=== PATIENT | female | born 1975 | race Caucasian/White ===

== ENCOUNTER → 2018-02-24 | Outpatient (CLI) | payer MEDICAID ==
[2018-02-24 13:12] LABS: Basophils % (A) 0 %; Eosinophils # (A) 0.1 k/uL (0-0.7); Eosinophils % (A) 2 %; HCT 40.2 % (34.0-46.0); HGB 13.3 gm/dL (11.4-16.0); Lymphocytes # (A) 1.2 k/uL (1.0-4.8); Lymphocytes % (A) 36 %; MCHC 33.2 g/dL (31.0-37.0); MCV 99.4 fL (80.0-100.0); Monocytes # (A) 0.2 k/uL (0-1.0); Monocytes % (A) 6 %; Neutrophils # (A) 1.8 k/uL (1.3-7.7); Neutrophils % (A) 52 %; Platelet Count 217 k/uL (150-450); RBC 4.04 m/uL (3.80-5.40); RDW 13.4 % (11.5-15.5); WBC 3.4 k/uL (3.8-10.6)
[2018-02-24 13:17] LABS: ALT 22 U/L (9-52); AST 19 U/L (14-36); Albumin 4.3 g/dL (3.5-5.0); Alkaline Phosphatase 52 U/L (38-126); Anion Gap 13 mmol/L; Blood Urea Nitrogen 13 mg/dL (7-17); Calcium 9.2 mg/dL (8.4-10.2); Carbon Dioxide 26 mmol/L (22-30); Chloride 101 mmol/L (98-107); Cholesterol 176 mg/dL (<200); Glucose 84 mg/dL (74-99); HDL Cholesterol 90 mg/dL (40-60); LDL Cholesterol,Calculated 76 mg/dL (0-99); Potassium 4.8 mmol/L (3.5-5.1); Sodium 140 mmol/L (137-145); Total Bilirubin 0.8 mg/dL (0.2-1.3); Total Protein 6.9 g/dL (6.3-8.2); Triglycerides 52 mg/dL (<150)
== END | disposition home or self-care (01) ==
LOC: LABWHC1 12:26
PROVIDERS: ATTEND Family Medicine
DX: E03.9 Hypothyroidism, unspecified (principal)
CPT/HCPCS: 36415; 80053; 80061; 84443; 85025

== ENCOUNTER → 2019-03-06 | Outpatient (CLI) | payer MEDICAID ==
[2019-03-06 12:31] LABS: African American GFR (CKD) 90.8 (60.0-200.0); Albumin 4.2 g/dL (3.80-4.90); Anion Gap 7.2 mmol/L (4.00-12.00); BUN/Creat Ratio 13.33 Ratio (12.00-20.00); Calcium 9.3 mg/dL (8.7-10.3); Carbon Dioxide 29.8 mmol/L (21.6-31.8); Globulin 2.1 g/dL (1.6-3.3); LDL Cholesterol,Calculated 79.8 mg/dL (0.0-131.0); Potassium 4.7 mmol/L (3.5-5.5); Total Bilirubin 0.8 mg/dL (0.2-1.2); Total Protein 6.3 g/dL (6.2-8.2); VLDL Calculation 13.2 mg/dL (5.00-40.00)
[2019-03-06 12:39] LABS: T4, Free (Free Thyroxine) 1.2 ng/dL (0.80-1.80)
== END | disposition home or self-care (01) ==
LOC: LABWHC1 07:16
PROVIDERS: ATTEND Family Medicine
DX: Z00.00 Encounter for general adult medical examination without abnormal findings (principal); E03.9 Hypothyroidism, unspecified
CPT/HCPCS: 36415; 80053; 80061; 84439; 84443

== ENCOUNTER → 2019-04-06 | Outpatient (CLI) | payer MEDICAID ==
--- NOTE | 2019-04-10 09:07 | MM ---
Reason for exam: screening (asymptomatic). Last mammogram was performed 2 years and 2 months ago. History: Family history of breast cancer in paternal aunt and breast cancer in paternal cousin. Physical Findings: A clinical breast exam by your physician is recommended on an annual basis and results should be correlated with mammographic findings. MG 3D Screening Mammo W/Cad Bilateral CC and MLO view(s) were taken. Prior study comparison: January 26, 2017, mammogram. January 16, 2016, mammogram. The breast tissue is extremely dense which could obscure a lesion on mammography. No significant changes when compared with prior studies. ASSESSMENT: Benign, BI-RAD 2 RECOMMENDATION: Routine screening mammogram of both breasts in 1 year.
== END | disposition home or self-care (01) ==
LOC: RADMAMWWP 06:59
PROVIDERS: ATTEND Family Medicine
DX: Z12.31 Encounter for screening mammogram for malignant neoplasm of breast (principal)
CPT/HCPCS: 77063; 77067

== ENCOUNTER 2019-08-20 06:22 | Day surgery (SDC) | payer MEDICAID ==
[2019-08-16 10:12] VITALS: BMI 23.6
--- NOTE | 2019-08-19 23:05 | P.GSHP ---
History of Present Illness H&P Date: 08/20/19 CHIEF COMPLAINT: GERD and colon screen HISTORY OF PRESENT ILLNESS: The patient is a 44-year-old female who presents with gastroesophageal reflux disease and need for colon screen. Upper and lower endoscopy were offered for further evaluation and management. PAST MEDICAL HISTORY: Please see list. PAST SURGICAL HISTORY: Please see list. MEDICATIONS: Please see list. ALLERGIES: Please see list. SOCIAL HISTORY: No illicit drug use FAMILY HISTORY: No reports of Crohn disease or ulcerative colitis. REVIEW OF ORGAN SYSTEMS: CONSTITUTIONAL: No reports of fevers or chills. GI: Denies any blood in stools or constipation. PHYSICAL EXAM: VITAL SIGNS: Stable GENERAL: Well-developed pleasant in no acute distress. HEENT: No scleral icterus. Extraocular movements grossly intact. Moist buccal mucosa. NECK: Supple without lymphadenopathy. CHEST: Unlabored respirations. Equal bilateral excursions. CARDIOVASCULAR: Regular rate and rhythm. Distal 2+ pulses. ABDOMEN: Soft, nondistended. MUSCULOSKELETAL: No clubbing, cyanosis, or edema. ASSESSMENT: 1. Gastroesophageal reflux disease 2. Colon screen. PLAN: 1. Recommend proceeding with an upper and lower endoscopy Past Medical History Past Medical History: Thyroid Disorder Additional Past Medical History / Comment(s): frequent diarrhea, celiac dx, History of Any Multi-Drug Resistant Organisms: None Reported Past Surgical History: Tonsillectomy Additional Past Surgical History / Comment(s): prev EGD, D&C Past Anesthesia/Blood Transfusion Reactions: No Reported Reaction Past Psychological History: Anxiety Smoking Status: Former smoker Past Alcohol Use History: Occasional Additional Past Alcohol Use History / Comment(s): smoked occasionally for a few years in teens Past Drug Use History: None Reported - Past Family History Father Family Medical History: Blood Disorder, Deep Vein Thrombosis (DVT) Medications and Allergies Home Medications Medication Instructions Recorded Confirmed Type Biotin 5 mg PO DAILY 08/16/19 08/16/19 History L.acidoph,Paracasei, B.lactis 1 each PO DAILY 08/16/19 08/16/19 History [Probiotic] Levothyroxine Sodium [Synthroid] 88 mcg PO DAILY 08/16/19 08/16/19 History Multivitamins, Thera [Multivitamin 1 tab PO DAILY 08/16/19 08/16/19 History (formulary)] Sertraline [Zoloft] 100 mg PO DAILY 08/16/19 08/16/19 History Allergies Allergy/AdvReac Type Severity Reaction Status Date / Time No Known Allergies Allergy Verified 08/16/19 10:02
[~2019-08-20 06:22] MED LIST: LACTATED RINGERS 1,000 ML IV SCH
[2019-08-20 06:43] VITALS: TEMP 97.1
[2019-08-20] MEDS ORDERED: PROPOFOL 10 MG/ML 20 ML VIAL IV ONE (07:12)
[2019-08-20] MEDS ORDERED: LIDOCAINE 1% INJ 10MG/ML (20 ML MDV) ONE (07:12)
--- NOTE | 2019-08-20 07:28 | P.PCN ---
Date of Procedure: 08/20/19 Description of Procedure: PREOPERATIVE DIAGNOSIS: Gastroesophageal reflux disease. History of celiac disease POSTOPERATIVE DIAGNOSIS: Gastroesophageal reflux disease. History of celiac disease Diaphragmatic hiatal hernia OPERATION: Esophagogastroduodenoscopy with biopsies along antrum and duodenum SURGEON: Debbie Mckinney MD ANESTHESIA: MAC. INDICATIONS: The patient is a 44-year-old female who presents with a history of reflux disease. Benefits and risks of the procedure were described. Informed consent was obtained. DESCRIPTION: The patient was brought into the endoscopy suite and laid in the left lateral decubitus position. An Olympus gastroscope was passed along the posterior oropharynx down to the distal esophagus where the squamocolumnar junction was encountered at 41 cm from the incisors. The stomach was entered and no bile reflux was found. Additional findings are listed below. Biopsies with cold forceps were obtained of the antrum. The first through fourth portion of the duodenum was examined with biopsies taken of the duodenum for history of celiac disease. Retroflexion of the scope confirmed Hill grade 1 lower esophageal valve. The squamocolumnar junction demonstrated LA grade A erosive esophagitis. The stomach was desufflated. The patient tolerated the procedure well. FINDINGS: Squamocolumnar junction 41 cm from the incisors. Diaphragmatic hiatus at 42 cm. Hiatal hernia, 1 cm Hill grade 1 lower esophageal valve. LA grade A erosive esophagitis. Biopsies obtained of the first through fourth portion of duodenum for celiac disease Chronic gastritis RECOMMENDATIONS: Upper endoscopy as needed.
--- NOTE | 2019-08-20 07:43 | P.PCN ---
Date of Procedure: 08/20/19 Description of Procedure: PREOPERATIVE DIAGNOSIS: Change in bowel habits History of celiac disease Left upper quadrant abdominal pain POSTOPERATIVE DIAGNOSIS: Change in bowel habits History of celiac disease Left upper quadrant abdominal pain OPERATION: Colonoscopy with random cold forceps biopsies for microscopic colitis Colonoscopy to the ileocecal valve and appendiceal orifice. SURGEON: Debbie Mckinney MD. ANESTHESIA: MAC. INDICATIONS: The patient is a 44-year-old female who presents with change in bowel habits. Benefits and risks were described and informed consent was obtained. DESCRIPTION OF PROCEDURE: The patient had undergone Suprep. She had been brought into the operating room and laid in the left lateral decubitus position. After adequate intravenous sedation, the rectum was examined with 2% lidocaine jelly. No external hemorrhoids were encountered. The rectal tone was within normal limits. No lesions were palpated in the rectal vault. An Olympus colonoscope was advanced until the ileocecal valve and appendiceal orifice were clearly viewed. The prep was excellent with clear visualization of the mucosal folds. The scope was removed with visualization of each mucosal fold. No scattered diverticulosis was encountered. No colonic polyps were found. Random biopsies were obtained of the colon to evaluate for microscopic colitis. Retroflexion of the scope demonstrated no internal hemorrhoids without active bleeding or inflammation. The colon was desufflated. The patient had tolerated the procedure well. Withdrawal time was over 6 minutes. FINDINGS: Aronchick preparation quality scale 1 (1-5) No internal hemorrhoids No external prolapsed hemorrhoids. No arteriovenous malformations. No adenomatous polyps. No diverticulosis RECOMMENDATIONS: Lower endoscopy as needed. Plan - Discharge Summary Discharge Rx Participant: No New Discharge Prescriptions: No Action Multivitamins, Thera [Multivitamin (formulary)] 1 tab PO DAILY Sertraline [Zoloft] 100 mg PO DAILY Levothyroxine Sodium [Synthroid] 88 mcg PO DAILY L.acidoph,Paracasei, B.lactis [Probiotic] 1 each PO DAILY Biotin 5 mg PO DAILY Discharge Medication List Biotin 5 mg PO DAILY 08/16/19 [History] L.acidoph,Paracasei, B.lactis [Probiotic] 1 each PO DAILY 08/16/19 [History] Levothyroxine Sodium [Synthroid] 88 mcg PO DAILY 08/16/19 [History] Multivitamins, Thera [Multivitamin (formulary)] 1 tab PO DAILY 08/16/19 [History] Sertraline [Zoloft] 100 mg PO DAILY 08/16/19 [History] Follow up Appointment(s)/Referral(s): Debbie Mckinney MD [STAFF PHYSICIAN] - 09/04/19 Patient Instructions/Handouts: Hiatal Hernia (DC), *Surgery [facility] - (Anesthesia) Endoscopy Discharge Instructions Activity/Diet/Wound Care/Special Instructions: Repeat colonoscopy in 10 years, 2028 or Cologaurd Discharge Disposition: HOME SELF-CARE
[2019-08-20 07:44] VITALS: RESP 16
[2019-08-20 08:04] VITALS: BP 112/75; PULSE 57
== END 2019-08-20 08:20 | disposition home or self-care (01) ==
LOC: ORWHC2ENDO 06:22
PROVIDERS: ATTEND Surgery Plastic and Reconstructive Surgery
DX: K29.50 Unspecified chronic gastritis without bleeding (principal); K21.0 Gastro-esophageal reflux disease with esophagitis; K52.9 Noninfective gastroenteritis and colitis, unspecified; K62.89 Other specified diseases of anus and rectum; K22.10 Ulcer of esophagus without bleeding; K44.9 Diaphragmatic hernia without obstruction or gangrene; K90.0 Celiac disease; E07.9 Disorder of thyroid, unspecified; F39 Unspecified mood [affective] disorder; F41.9 Anxiety disorder, unspecified; Z79.890 Hormone replacement therapy; Z79.899 Other long term (current) drug therapy; Z87.891 Personal history of nicotine dependence; Z90.89 Acquired absence of other organs
CPT/HCPCS: 81025; 88305; 88313; 45380; 43239; J2001; J2704

== ENCOUNTER → 2020-11-05 | Outpatient (CLI) | payer MEDICAID ==
[2020-11-05 10:39] LABS: HCT 38.1 % (37.2-46.3); HGB 12.9 g/dL (12.0-15.0); MCHC 33.9 g/dL (32.0-37.0); MCV 100.5 fL (80.0-97.0); Mean Platelet Volume 12.3 fL (9.5-12.2); Platelet Count 216 X 10*3/uL (140-440); RBC 3.79 X 10*6/uL (4.10-5.20); RDW 12.7 % (11.5-14.5); WBC 3.82 X 10*3/uL (4.50-10.00)
[2020-11-05 11:00] LABS: African American GFR (CKD) 89.5 (60.0-200.0); Albumin 4.3 g/dL (3.80-4.90); Albumin/Globulin Ratio 1.87 (1.60-3.17); Anion Gap 4.9 mmol/L (4.00-12.00); BUN/Creat Ratio 13.33 Ratio (12.00-20.00); Calcium 10.1 mg/dL (8.7-10.3); Carbon Dioxide 29.1 mmol/L (21.6-31.8); Chol/HDL Ratio 2.12; Globulin 2.3 g/dL (1.6-3.3); Non-African American GFR(CKD) 77.2 (60.0-200.0); Potassium 4.4 mmol/L (3.5-5.5); Total Bilirubin 0.5 mg/dL (0.3-1.2); Total Protein 6.6 g/dL (6.2-8.2)
[2020-11-05 11:08] LABS: T4, Free (Free Thyroxine) 1.4 ng/dL (0.80-1.80)
== END | disposition home or self-care (01) ==
LOC: LABWHC1 07:41
PROVIDERS: ATTEND Family Medicine
DX: Z00.00 Encounter for general adult medical examination without abnormal findings (principal); E03.9 Hypothyroidism, unspecified
CPT/HCPCS: 36415; 80053; 80061; 84439; 84443; 85027

== ENCOUNTER → 2020-12-25 | Outpatient (CLI) | payer MEDICAID ==
--- NOTE | 2020-12-26 11:42 | MM ---
Reason for exam: screening (asymptomatic). Last mammogram was performed 1 year and 9 months ago. History: Family history of breast cancer in paternal aunt and breast cancer in paternal cousin. Physical Findings: A clinical breast exam by your physician is recommended on an annual basis and results should be correlated with mammographic findings. MG 3D Screening Mammo W/Cad Bilateral CC and MLO view(s) were taken. Prior study comparison: April 06, 2019, bilateral MG 3d screening mammo w/cad. January 26, 2017, mammogram. The breast tissue is heterogeneously dense. This may lower the sensitivity of mammography. Finding: There are typically benign round, diffuse/scattered calcifications in the right breast. There is a chronic nodularity in the left breast. There is no discrete abnormality. ASSESSMENT: Negative, BI-RAD 1 RECOMMENDATION: Routine screening mammogram of both breasts in 1 year.
== END | disposition home or self-care (01) ==
LOC: RADMAMWWP 08:25
PROVIDERS: ATTEND Family Medicine
DX: Z12.31 Encounter for screening mammogram for malignant neoplasm of breast (principal); Z80.3 Family history of malignant neoplasm of breast
CPT/HCPCS: 77063; 77067

== ENCOUNTER → 2021-07-13 | Outpatient (CLI) | payer MEDICAID, OTHER | END | disposition home or self-care (01) | LOC: LABWHC1 08:47 | PROVIDERS: ATTEND Emergency Medicine | DX: Z03.818 Encounter for observation for suspected exposure to other biological agents ruled out (principal); Z20.828 Contact with and (suspected) exposure to other viral communicable diseases | CPT/HCPCS: 87635 ==

== ENCOUNTER → 2021-07-14 | Outpatient (CLI) | payer MEDICAID, OTHER | END | disposition home or self-care (01) | LOC: LABWHC1 08:40 | PROVIDERS: ATTEND Emergency Medicine | DX: Z20.822 Contact with and (suspected) exposure to COVID-19 (principal) | CPT/HCPCS: 87635 ==

== ENCOUNTER → 2021-08-24 | Outpatient (CLI) | payer MEDICAID, OTHER ==
[2021-08-24 11:26] LABS: ALT 14 U/L (8-44); AST 17 U/L (13-35); African American GFR (CKD) 102.5 (60.0-200.0); Albumin 4.4 g/dL (3.8-4.9); Alkaline Phosphatase 63 U/L (41-126); BUN/Creat Ratio 17.13 Ratio (12.00-20.00); Blood Urea Nitrogen 13.7 mg/dL (9.0-27.0); Calcium 9.2 mg/dL (8.7-10.3); Carbon Dioxide 26.7 mmol/L (20.0-27.5); Chloride 104 mmol/L (96-109); Chol/HDL Ratio 2.25 Ratio; Globulin 2.2 g/dL (1.6-3.3); Glucose 76 mg/dL (70-110); LDL Cholesterol,Calculated 93.1 mg/dL (0.0-131.0); Non-African American GFR(CKD) 88.4 (60.0-200.0); Potassium 4.8 mmol/L (3.5-5.5); Sodium 140 mmol/L (135-145); Total Protein 6.6 g/dL (6.2-8.2); VLDL Calculation 11.16 mg/dL (5.00-40.00)
== END | disposition home or self-care (01) ==
LOC: LABWHC1 07:07
PROVIDERS: ATTEND Family Medicine
DX: E03.9 Hypothyroidism, unspecified (principal); I10 Essential (primary) hypertension; E78.5 Hyperlipidemia, unspecified
CPT/HCPCS: 36415; 80053; 80061; 83721; 84439; 84443; 85652

== ENCOUNTER → 2022-02-26 | Outpatient (CLI) | payer MEDICAID ==
--- NOTE | 2022-02-26 12:12 | MM ---
Reason for Exam: Screening (asymptomatic). Last mammogram was performed 1 year(s) and 2 month(s) ago. Patient History: Menarche at age 13. First Full-Term at age 26. Paternal cousin had breast cancer. Paternal aunt had breast cancer. Risk Values: Sylwia 5 year model risk: 0.9%. NCI Lifetime model risk: 10.5%. Prior Study Comparison: 01/26/2017 Screening Mammogram, Unknown. 04/06/2019 Bilateral Screening Mammogram, [facility]. 12/25/2020 Bilateral Screening Mammogram, [facility]. Tissue Density: The breast tissue is heterogeneously dense. This may lower the sensitivity of mammography. Findings: Analyzed By CAD. Regional Calcifications in the right breast redemonstrated. Well-circumscribed oval small mass anterior medial right breast is decreased in size from prior studies. Benign appearing bilateral axillary lymph nodes redemonstrated. There is no suspicious group of microcalcifications or new suspicious mass in either breast. Overall Assessment: Benign, BI-RAD 2 Management: Screening Mammogram of both breasts in 1 year. Some advise bilateral breast ultrasound surveillance in patients with background dense tissue. Electronically signed and approved by: Griffin Ace M.D.
== END | disposition home or self-care (01) ==
LOC: RADMAMWWP 06:56
PROVIDERS: ATTEND Family Medicine
DX: Z12.31 Encounter for screening mammogram for malignant neoplasm of breast (principal); Z80.3 Family history of malignant neoplasm of breast
CPT/HCPCS: 77063; 77067

== ENCOUNTER → 2022-03-04 | Outpatient (CLI) | payer MEDICAID ==
[2022-03-04 10:47] LABS: HCT 43.2 % (37.2-46.3); HGB 13.9 g/dL (12.0-15.0); MCH 32.4 pg (27.0-32.0); MCHC 32.2 g/dL (32.0-37.0); MCV 100.7 fL (80.0-97.0); Mean Platelet Volume 12.3 fL (9.5-12.2); NRBC Per 100 WBC 0 /100 WBCS (0.0-0.0); Platelet Count 233 X 10*3/uL (140-440); RBC 4.29 X 10*6/uL (4.10-5.20); RDW 13.4 % (11.5-14.5); WBC 3.48 X 10*3/uL (4.50-10.00)
[2022-03-04 11:03] LABS: ALT 13 U/L (8-44); AST 21 U/L (13-35); African American GFR (CKD) 78.2 (60.0-200.0); Albumin 4.7 g/dL (3.8-4.9); Albumin/Globulin Ratio 1.47 (1.60-3.17); Alkaline Phosphatase 63 U/L (41-126); Blood Urea Nitrogen 19.9 mg/dL (9.0-27.0); Calcium 9.6 mg/dL (8.7-10.3); Carbon Dioxide 28.6 mmol/L (20.0-27.5); Chloride 102 mmol/L (96-109); Chol/HDL Ratio 2.78 Ratio; Globulin 3.2 g/dL (1.6-3.3); Glucose 82 mg/dL (70-110); LDL Cholesterol,Calculated 162.5 mg/dL (0.0-131.0); Non-African American GFR(CKD) 67.5 (60.0-200.0); Potassium 4.9 mmol/L (3.5-5.5); Sodium 139 mmol/L (135-145); Total Protein 7.9 g/dL (6.2-8.2); VLDL Calculation 11.74 mg/dL (5.00-40.00)
== END | disposition home or self-care (01) ==
LOC: LABWHC1 07:18
PROVIDERS: ATTEND Family Medicine
DX: Z00.00 Encounter for general adult medical examination without abnormal findings (principal); E03.9 Hypothyroidism, unspecified; K90.0 Celiac disease; E05.00 Thyrotoxicosis with diffuse goiter without thyrotoxic crisis or storm
CPT/HCPCS: 36415; 80053; 80061; 83036; 84443; 85027

== ENCOUNTER → 2022-05-06 | Outpatient (CLI) | payer MEDICAID ==
[2022-05-06 08:21] VITALS: BP 129/84; PULSE 74; RESP 18; TEMP 98
--- NOTE | 2022-05-06 13:32 | P.PAINPG ---
PQRS Measure Charge Sheet Comment: HISTORY OF PRESENT ILLNESS: 46 yr old female as a referral from Dr. Benoit presents today w severe and chronic mid back pain secondary to DDD, spondylosis, facet arthropathy without myelopathy for evaluation. Pt states her pain level is currently at 5/10 in intensity, constant, localized in between the shoulder blades, tight in character w radiation to the BL flanks. Pain escalates as high as 9/10 in intensity w inactivity. Pain is alleviated w PT/ massage/ chiropractic treatments in the past without relief, home based stretching daily, heat, ice, repositioning and rest. PMH: Thyroid Disorde, Anxiety, Celiac Disease PSH: Tonsillectomy, Colonoscopy (2019), EGD, D&C SH: Former tobacco user, Occasional ETOH use, No illicit drug use. FH: Fa- DVT All: NKDA Meds: See list REVIEW OF ORGAN SYSTEMS: CONSTITUTIONAL: No fevers or chills. No recent weight loss. NEUROLOGICAL: + numbness and tingling along the distal extremities. No seizure disorders or headaches. MUSCULOSKELETAL: + pain PSYCHIATRIC: Denies current depression or suicidal thoughts. Physical Examinations : Constitutional : Cooperative , not in acute distress . Neurologic : Cranial nerve II to XII intact. No focal neurological deficits. Psychiatric : alert & oriented x 3. Matching mood & appropriate affect. Judgment & insight intact. Musculoskeletal : Cervical Spine Motor strength in the deltoid and biceps: Normal right side. Normal Left side Motor strength biceps and the wrist extensors: Normal right side . Normal left side Motor strength in the triceps muscle: Normal right side. Normal left side Deep tendon reflexes: Normal at the biceps. Normal at Brachioradialis. Normal at triceps Vertebral body tenderness to deep palpation over Cervical facet loading test: positive bilaterally Spurling test: positive bilaterally Neck distraction test: positive bilaterally Mayda sign: positive bilaterally Lumbar spine Motor strength lower extremities ,thigh and legs 5/5 Right side , 5/5 Left side Deep tendon reflexes : Normal Knee Jerk. Normal Ankle Jerk Vertebral body tenderness over T7, T8 w accompanying paraspinal TTP Lumbar facet Loading Test: positive Right / positive Left Range of motion of the lumbar spine Flexion 30 degrees, extension 10 degrees Straight Leg Raise test: Left/ Right positive at degree Aliza test: positive right / positive left. Severe tenderness over the Sacroiliac joint on the Right / Left sides Gaenslen test: positive bilaterally Seated flexion test: positive bilateral ly. Sacral spine : Severe tenderness over the Sacroiliac joint: right side / left side Range of motion: Flexion of the lumbar spine <60 degrees Range of motion: Extension of the lumbar spine <20 degrees Gaenslen's Test positive Gallito's Test positive Aliza test: positive right side / left side Thigh Thrust Test Sacral Thrust Test Imaging: X-ray of the thoracic spine from 04/20/22 reviewed Assessment/ Plan : Thoracic DDD Recommendation of Thoracic MRI without contrast re M51.34. Pt may return to our clinic within 2 wks for a re evaluation. All questions answered. I have spent greater than 30 minutes on patient care today. Dr Soto was available by phone for the evaluation of this patient. The time was used to review the medical records including relevant urine studies and Prescription history (MAPs), review of the available imaging, evaluation and examination of the patient, coordination of care with the medical staff and if applicable referring physicians, as well as creation of the medical record PQRS Narrative: Smoking Status Former smoker Home Medications: Ambulatory Orders Biotin 5 mg PO DAILY 08/16/19 L.acidoph,Paracasei, B.lactis [Probiotic] 1 each PO DAILY 08/16/19 Levothyroxine Sodium [Synthroid] 88 mcg PO DAILY 08/16/19 Multivitamins, Thera [Multivitamin (formulary)] 1 tab PO DAILY 08/16/19 Sertraline [Zoloft] 100 mg PO DAILY 08/16/19 Controlled Substance Measures - Controlled Substance Measures Is patient prescribed a controlled substance at discharge?: No
== END | disposition home or self-care (01) ==
LOC: PNWHC3 07:20
PROVIDERS: ATTEND Specialist
DX: M51.34 Other intervertebral disc degeneration, thoracic region (principal)
CPT/HCPCS: 99211

== ENCOUNTER → 2022-06-10 | Outpatient (CLI) | payer MEDICAID ==
[2022-06-10 10:24] VITALS: BP 124/75; PULSE 69; RESP 18; TEMP 97.5
--- NOTE | 2022-06-10 13:02 | P.PAINPG ---
PQRS Measure Charge Sheet Comment: A 46 yr old female with a history of severe and chronic mid back pain secondary to thoracic degenerative disc diseases with facet arthropathy without myelopathy presents today for MRI results. Pain level is currently at 8/10 in intensity, constant, localized in mid spine, dull in character w shooting towar ds the flanks. Pain is provoked by standing for periods of 30 min or more, or twisting. Pain is alleviated with PT in the past, home stretching regimen, massage in early 2021, chiropractic treatments in early 2021, heat, ice, medications (Motrin), repositioning and rest. Patient is currently on Motrin prn Patient denies any side effects of the medication(s), denies excessive drowsiness or sleepiness, denies suicidal ideation and reports that the current pain medication is helping to control the pain and improve activities of daily living. Patient denies any motor or sensory deficits. Patient denies any fever or night sweats, denies any change in the bowel movements or urination. Physical Examination: -Constitutional: Cooperative. Not in acute distress . - Neurologic: Cranial nerve II to XII intact. No focal neurological deficits. - Psychatric: Alert & oriented x 3. Matching mood & appropriate affect. Judgment and insight intact. - Musculoskeletal: Cervical spine: Muscle bulk/ tone/ strength in the bilateral upper extremities normal Vertebral body tenderness to palpation over Spurling test positive Distraction test positive Facet loading test positive Thoracic spine Muscle bulk / tone/ strength in the bilateral paraspinal muscles normal Vertebral body tender to palpation over BL paraspinal TTP over T6-T10 Facet loading test positive Lumbar spine: Motor bulk/ tone/ strength lower extremities , thigh and legs : 5/5 Deep tendon reflexes : Normal Knee Jerk. Normal Ankle Jerk . Vertebral body tenderness to palpation over Lumbar Facet Loading Test positive Straight Leg Raise: positive at 30 degrees right side/ left side Gaenslen's Test positive Sacral spine : Severe tenderness over the Sacroiliac joint: right side / left side Range of motion: Flexion of the lumbar spine <60 degrees Range of motion: Extension of the lumbar spine <20 degrees Gaenslen's Test positive Gallito's Test positive Aliza test: positive right side / left side Thigh Thrust Test Sacral Thrust Test Imaging: MRI without contrast of the thoracic spine from 06/02/22 reviewed Assessment and plan: Chronic mid back pain secondary to thoracic degenerative disc disease with facet arthropathy without myelopathy Recommendation of TPIs of BL T6-T10. May need a series of injections, up to every 2-3 mo, for optimal relief. Risks, benefits of procedure discussed and pt verbalized understanding. Admits to anticoagulant use or medical history of diabetes. Protocol for discontinuation / continuation of medications eduard procedure discussed. All patient questions answered I have spent less than 30 minutes on patient care today. Dr Soto was available by phone for the evaluation of this patient. The time was used to review the medical records including relevant urine studies and Prescription history (MAPs), review of the available imaging, evaluation and examination of the patient, coordination of care with the medical staff and if applicable referring physicians, as well as creation of the medical record PQRS Narrative: Smoking Status Former smoker Hx Alcohol Use (MH) No Home Medications: Ambulatory Orders Biotin 5 mg PO DAILY 08/16/19 L.acidoph,Paracasei, B.lactis [Probiotic] 1 each PO DAILY 08/16/19 Levothyroxine Sodium [Synthroid] 88 mcg PO DAILY 08/16/19 Multivitamins, Thera [Multivitamin (formulary)] 1 tab PO DAILY 08/16/19 Sertraline [Zoloft] 100 mg PO DAILY 08/16/19 Controlled Substance Measures - Controlled Substance Measures Is patient prescribed a controlled substance at discharge?: No
== END | disposition home or self-care (01) ==
LOC: PNWHC3 09:55
PROVIDERS: ATTEND Specialist
DX: M47.894 Other spondylosis, thoracic region (principal); M51.34 Other intervertebral disc degeneration, thoracic region
CPT/HCPCS: 99211

== ENCOUNTER 2022-07-08 08:25 | Day surgery (SDC) | payer MEDICAID ==
[~2022-07-08 08:25] MED LIST changes: +LIDOCAINE 1% (10MG/ML) FOR IV START INTRADERMA PRN
[2022-07-08 08:45] VITALS: TEMP 96.9
[2022-07-08] MEDS ORDERED: ROPIVACAINE 5 MG/ML 20 ML AMPULE ONE (08:54)
[2022-07-08] MEDS ORDERED: methylPREDNISolone ACETATE 40 MG/ML 1 ML VIAL ONE (08:54)
[2022-07-08 09:08] VITALS: RESP 16
--- NOTE | 2022-07-08 09:09 | P.PCN ---
Date of Procedure: 07/08/22 Procedure(s) Performed: Procedure= trigger point injection thoracic paraspinal muscles on the right side thoracic paraspinal muscles and 3 on the Left side side thoracic paraspinal muscles T6 to T10. Preoperative diagnosis= 1- myofascial pain syndrome thoracic area 2-Thoracic degenerative disc disease 3-Thoracic facet arthropathy Postoperative diagnosis=Same as preop Diagnosis . Complication = none Condition= stable Anesthesia= none. Indication for the procedure= patient complaining of mid back pain , examination was positive for severe tenderness over the thoracic paraspinal muscles bilaterally and patient diagnosed with myofascial pain syndrome thoracic area, for this reason she was good candidate for trigger point injection. Description of the procedure= procedure risk and benefits discussed with the patient, including but not limited, risk of infection and bleeding, and ALLERGIC reaction to the medication and not complete pain relief and patient agreed with the preceding patient taken to the operating room, placed in sitting position or standard monitors applied to the patient then after induction of anesthesia back prepped with chlorhexidine 3 times , trigger point injection under sterile technique using 25-gauge needle, total of 3 trigger point identified in the right side thoracic paraspinal muscles, and 3 on the left side thoracic paraspinal muscles, from T6 ,to T10 , each of the trigger point injected with 2.5 mL of the mixture of ropivacaine 0.5% with 40 mg of Depo-Medrol, mixed together and injection done after negative aspiration using 25-gauge needle, patient tolerated the procedure well without any complications Total of 15 ML of ropivacaine used, was mixed with 40 mg of Depo-Medrol
[2022-07-08 09:35] VITALS: BP 121/82; PULSE 71
== END 2022-07-08 09:25 | disposition home or self-care (01) ==
LOC: ORPAIN 08:25
PROVIDERS: ATTEND Specialist
DX: M47.814 Spondylosis without myelopathy or radiculopathy, thoracic region (principal); M79.18 Myalgia, other site; M51.34 Other intervertebral disc degeneration, thoracic region
CPT/HCPCS: 81025; 20553; J1030; J2795

== ENCOUNTER → 2022-07-28 | Outpatient (CLI) | payer MEDICAID ==
[2022-07-28 09:14] VITALS: BP 116/75; PULSE 64; RESP 18; TEMP 97.6
--- NOTE | 2022-07-28 14:23 | P.PAINPG ---
PQRS Measure Charge Sheet Comment: A 46 yr old female with a history of severe and chronic low back pain secondary to lumbar DDD and spondylosis with facet arthropathy without myelopathy presents today for evaluation s/p L T6-T10 TPIs Pt states she experienced 0 % pain relief x 3 wks s/p procedure. Pain level is currently at 9/10 in intensity, constant, localized in mid back, achy in character w shooting towards the L flanks. Pain is provoked by lifting/ twisting. Pain is alleviated with PT/ chiropractic treatments/ massage therapy in the past w brief relief, daily home exercise, medications (Ibu), repositioning and rest. Interventional pain procedures completed include TPIs T6-T10 Patient is currently on Ibuprofen Patient denies any side effects of the medication(s), denies excessive drowsiness or sleepiness, denies suicidal ideation and reports that the current pain medication is helping to control the pain and improve activities of daily living. Patient denies any motor or sensory deficits. Patient denies any fever or night sweats, denies any change in the bowel movements or urination. Physical Examination: -Constitutional: Cooperative. Not in acute distress . - Neurologic: Cranial nerve II to XII intact. No focal neurological deficits. - Psychatric: Alert & oriented x 3. Matching mood & appropriate affect. Judgment and insight intact. - Musculoskeletal: Cervical spine: Muscle bulk/ tone/ strength in the bilateral upper extremities normal Vertebral body tenderness to palpation over Spurling test positive Distraction test positive Facet loading test positive Thoracic spine Muscle bulk / tone/ strength in the bilateral paraspinal muscles normal Vertebral body tender to palpation over T8 Facet loading test positive Lumbar spine: Motor bulk/ tone/ strength lower extremities , thigh and legs : 5/5 Deep tendon reflexes : Normal Knee Jerk. Normal Ankle Jerk . Vertebral body tenderness to palpation over Lumbar Facet Loading Test positive Straight Leg Raise: positive at 30 degrees right side/ left side Gaenslen's Test positive Sacral spine : Severe tenderness over the Sacroiliac joint: right side / left side Range of motion: Flexion of the lumbar spine <60 degrees Range of motion: Extension of the lumbar spine <20 degrees Gaenslen's Test positive Aliza test: positive right side / left side Thigh Thrust Test Sacral Thrust Test Assessment and plan: Chronic mid back pain secondary to thoracic degenerative disc disease, spondylosis with facet arthropathy without myelopathy Recommendation of ROSY T8-T9. May need a series of injections, up to 3 within a 6mo period, for optimal pain relief. Risks, benefits of procedure discussed and pt verbalized understanding. Admits to anticoagulant use or medical history of diabetes. Protocol for discontinuation/ continuation of medications eduard procedure discussed. All patient questions answered or I have spent less than 30 minutes on patient care today. Dr Soto was available by phone for the evaluation of this patient. The time was used to review the medical records including relevant urine studies and Prescription history (MAPs), review of the available imaging, evaluation and examination of the patient, coordination of care with the medical staff and if applicable referring physicians, as well as creation of the medical record - Pain Location Back Non-Pharmacological Interventions: Chiropractic Treatment, Home Exercise, Massage, Physical Therapy, Position/Reposition, Stretching Pharmacological Interventions: PRN Medication PQRS Narrative: Smoking Status Former smoker Hx Alcohol Use (MH) No Home Medications: Ambulatory Orders Biotin 5 mg PO DAILY 08/16/19 L.acidoph,Paracasei, B.lactis [Probiotic] 1 each PO DAILY 08/16/19 Levothyroxine Sodium [Synthroid] 88 mcg PO DAILY 08/16/19 Multivitamins, Thera [Multivitamin (formulary)] 1 tab PO DAILY 08/16/19 Sertraline [Zoloft] 100 mg PO DAILY 08/16/19 Ibuprofen [Motrin] 400 mg PO Q6HR PRN 07/06/22 Controlled Substance Measures - Controlled Substance Measures Is patient prescribed a controlled substance at discharge?: No
== END ==
LOC: PNWHC3 08:54
PROVIDERS: ATTEND Specialist
DX: M47.814 Spondylosis without myelopathy or radiculopathy, thoracic region (principal); M51.34 Other intervertebral disc degeneration, thoracic region; G89.29 Other chronic pain; Z87.891 Personal history of nicotine dependence
CPT/HCPCS: 99211

== ENCOUNTER 2022-08-17 11:03 | Day surgery (SDC) | payer MEDICAID ==
[2022-08-17 11:38] VITALS: RESP 16; TEMP 98.3
[2022-08-17] MEDS ORDERED: methylPREDNISolone ACETATE 80 MG/ML 1 ML VIAL ONE (11:54)
[2022-08-17] MEDS ORDERED: IOPAMIDOL M200 10 ML VIAL ONE (11:54)
--- NOTE | 2022-08-17 12:11 | P.PCN ---
Date of Procedure: 08/17/22 Procedure(s) Performed: PREOPERATIVE DIAGNOSIS: 1- Thoracic Degenerative Disc Diseases 2-thoracic spondylosis with Facet arthropathy without myelopathy. POSTOPERATIVE DIAGNOSIS: Same as preop diagnosis. PROCEDURE 1. Thoracic epidural steroid injection under fluoroscopic guidance at the T6-7 level. (Fluoroscopy imaging was available in radiology department) 2. Thoracic epidurogram. ANESTHESIA: none EBL: Minimal PROCEDURE INDICATION: The patient with low back pain and radiculitis symptoms unresponsive to conservative treatment. Fluoroscopy was used to optimize visualization of the needle placement and to maximize safety. PROCEDURE DESCRIPTION / TECHNIQUE: The patient was seen and identified in the preoperative area. Risks, benefits, complications including but not limited to infections ,bleeding ,allergic reaction to the medications ,nerve damage and not complete pain releife , and alternatives were discussed with the patient. The patient agreed to proceed with the procedure and signed the consent., and vital signs were stable. Patient was taken to the OR and time out was completed. The patient was placed in the prone position on procedure table . The Thioracic area was prepped and draped in the usual sterile fashion.ere closely monitored during the procedure. Conscious sedation was used during the procedure to decrease patients anxiety. Vital signs was monitered during the entire procedure. Using anterior-posterior fluoroscopy, the T6-7 interlaminar space was identified and the skin over this site was marked and then infiltrated with 1% lidocaine subcutaneously. Subsequently, a 20-gauge Tuohy epidural needle was inserted and advanced toward the epidural space using the ``Loss of resistance technique and guided by AP and lateral fluoroscopy. The correct needle position in the epidural space was verified with the injection of 2 mL of the water soluble contrast dye Isovue 200 contrast and observing an excellent epidurogram with the epidural spread of the dye, after negative aspiration for blood and CSF and in the absence of paresthesias. Again after negative aspiration, a 6 ml mixture containing 80 mg of Depo-medrol ( Preservetive Free ), and 2 ml of preservative free Normal Saline, and 2 ml of preservative free lidocaine 1% solution was injected and a washout of epidurogram was seen. Needle was withdrawn intact, skin was cleansed, and bandages were applied. COMPLICATIONS: None DISPOSITION / PLANS: The patient was placed in a supine position and transferred to the recovery area in a stable condition for observation. There was no evidence of lower extremity motor or sensory deficit after the procedure. Patient was discharged from the recovery room after meeting discharge criteria. Home discharge instructions were given to the patient by the staff. The patient was reexamined prior to discharge. The patient will schedule a follow up in the clinic in 2-4 weeks. note=she was scheduled to have thoracic epidural steroid injection at T8 9, after patient was placed in the procedure table, the most painful area was marked and fluroscopy showed that the pain located mostly at T6 7 level, for this reason we changed the procedure from T89, to T6-7, patient agreed,
[2022-08-17 12:26] VITALS: BP 105/71; PULSE 70
--- NOTE | 2022-08-17 13:19 | FL ---
EXAMINATION TYPE: FL guided pain mgmt statistic DATE OF EXAM: 08/17/2022 FLUOROSCOPY Fluoroscopy time of 3 seconds was used during thoracic epidural injection. 1 image/s document/s the procedure.
== END 2022-08-17 12:26 | disposition home or self-care (01) ==
LOC: ORPAIN 11:03
PROVIDERS: ATTEND Specialist
DX: M51.14 Intervertebral disc disorders with radiculopathy, thoracic region (principal); M47.24 Other spondylosis with radiculopathy, thoracic region
CPT/HCPCS: 81025; 62321; J1040; Q9966

== ENCOUNTER → 2023-05-25 | Outpatient (CLI) | payer MEDICAID ==
[2023-05-25 10:28] LABS: Basophils % (A) 1 %; Eosinophils # (A) 0.1 k/uL (0-0.7); Eosinophils % (A) 4 %; HCT 40.6 % (34.0-46.0); HGB 13.7 gm/dL (11.4-16.0); Lymphocytes # (A) 1.2 k/uL (1.0-4.8); Lymphocytes % (A) 41 %; MCH 33.7 pg (25.0-35.0); MCHC 33.8 g/dL (31.0-37.0); MCV 99.7 fL (80.0-100.0); Mean Platelet Volume 9.2; Monocytes # (A) 0.2 k/uL (0-1.0); Monocytes % (A) 7 %; Neutrophils # (A) 1.3 k/uL (1.3-7.7); Neutrophils % (A) 46 %; Platelet Count 202 k/uL (150-450); RBC 4.07 m/uL (3.80-5.40); RDW 12.5 % (11.5-15.5); WBC 2.9 k/uL (3.8-10.6)
[2023-05-25 10:49] LABS: ALT 19 U/L (4-34); AST 25 U/L (14-36); African American GFR (CKD) >90 (>60 ml/min/1.73 sqM); Albumin 4.2 g/dL (3.5-5.0); Alkaline Phosphatase 65 U/L (38-126); Anion Gap 10 mmol/L; Blood Urea Nitrogen 17 mg/dL (7-17); Calcium 9.5 mg/dL (8.4-10.2); Carbon Dioxide 28 mmol/L (22-30); Chloride 102 mmol/L (98-107); Glucose 85 mg/dL (74-99); Non-African American GFR(CKD) >90 (>60 ml/min/1.73 sqM); Sodium 140 mmol/L (137-145); Total Bilirubin 0.6 mg/dL (0.2-1.3); Total Protein 7.4 g/dL (6.3-8.2)
[2023-05-25 20:48] LABS: Chol/HDL Ratio 2.55 Ratio; Ferritin 39.4 ng/mL (10.0-291.0); Iron 88 UG/DL (50-170); LDL Cholesterol,Calculated 105.5 mg/dL (0.0-131.0); VLDL Calculation 18.54 mg/dL (5.00-40.00)
== END | disposition home or self-care (01) ==
LOC: LABT 09:32
PROVIDERS: ATTEND Family Medicine
DX: Z00.00 Encounter for general adult medical examination without abnormal findings (principal); D52.9 Folate deficiency anemia, unspecified; E11.9 Type 2 diabetes mellitus without complications; I10 Essential (primary) hypertension; Z13.228 Encounter for screening for other metabolic disorders; D51.9 Vitamin B12 deficiency anemia, unspecified; E03.9 Hypothyroidism, unspecified
CPT/HCPCS: 80053; 80061; 82306; 82728; 83036; 83540; 84443; 85025

== ENCOUNTER → 2023-05-26 | Outpatient (CLI) | payer MEDICAID ==
--- NOTE | 2023-05-27 09:52 | MM ---
Reason for Exam: Screening (asymptomatic). Last mammogram was performed 1 year(s) and 3 month(s) ago. Patient History: Menarche at age 13. First Full-Term at age 26. Postmenopausal. Patient has history of breast feeding. Paternal cousin had breast cancer. Paternal aunt had breast cancer. Risk Values: Sylwia 5 year model risk: 1.0%. NCI Lifetime model risk: 10.3%. Prior Study Comparison: 04/06/2019 Bilateral Screening Mammogram, [facility]. 12/25/2020 Bilateral Screening Mammogram, [facility]. 02/26/2022 Bilateral MG 3D screening mammo w/cad, [facility]. Tissue Density: The breast tissue is heterogeneously dense. This may lower the sensitivity of mammography. Findings: Analyzed By CAD. There is no suspicious group of microcalcifications or new suspicious mass in either breast. Overall Assessment: Benign, BI-RAD 2 Management: Screening Mammogram of both breasts in 1 year. . Patient should continue monthly self-breast exams. A clinical breast exam by your physician is recommended on an annual basis. This exam should not preclude additional follow-up of suspicious palpable abnormalities. Note on Sylwia scores and lifetime risk: 1. A Sylwia score greater than 3% is considered moderate risk. If this is the case, consider specialist referral to assess eligibility for a risk reducing agent. 2. If overall lifetime risk for the development of breast cancer is 20% or higher, the patient may qualify for future screening with alternating mammogram and breast MRI. Electronically signed and approved by: Ismael Olsen M.D. Radiologis
== END | disposition home or self-care (01) ==
LOC: RADMAMWWP 11:19
PROVIDERS: ATTEND Family Medicine
DX: Z12.31 Encounter for screening mammogram for malignant neoplasm of breast (principal); Z78.0 Asymptomatic menopausal state; Z80.3 Family history of malignant neoplasm of breast
CPT/HCPCS: 77063; 77067

== ENCOUNTER → 2023-06-28 | Outpatient (CLI) | payer MEDICAID ==
[2023-06-28 11:45] LABS: HCT 40.6 % (34.0-46.0); HGB 13.6 gm/dL (11.4-16.0); MCHC 33.5 g/dL (31.0-37.0); MCV 98.6 fL (80.0-100.0); Mean Platelet Volume 10.5; Platelet Count 190 k/uL (150-450); RBC 4.12 m/uL (3.80-5.40); Reticulocyte % 1.5 % (0.5-2.0); WBC 3.6 k/uL (3.8-10.6)
[2023-06-28 13:46] LABS: Eosinophils # (M) 0.18 k/uL (0-0.7); Lymphocytes # (M) 1.15 k/uL (1.0-4.8); Monocytes # (M) 0.36 k/uL (0-1.0); Neutrophils # (M) 1.91 k/uL (1.3-7.7); Neutrophils % (M) 53 %; Nucleated Red Blood Cells 0 /100 WBC (0-0); RBC Morphology Normal; Total Cells Counted 100
== END | disposition home or self-care (01) ==
LOC: LABWHC1 09:07
PROVIDERS: ATTEND Family Medicine
DX: D72.819 Decreased white blood cell count, unspecified (principal)
CPT/HCPCS: 36415; 85027; 85045

== ENCOUNTER → 2023-10-14 | Outpatient (CLI) | payer MEDICAID ==
--- NOTE | 2023-10-14 16:25 | CT ---
EXAMINATION TYPE: CT abdomen wo/w con DATE OF EXAM: 10/14/2023 COMPARISON: None HISTORY: abdominal pain x [address] week with abnormal labs CT DLP: 691.9 mGycm Automated exposure control for dose reduction was used. TECHNIQUE: Helical acquisition of images was performed from the lung bases through the top of iliac crest to include entire abdomen. CONTRAST: Performed with Oral Contrast and without and with IV Contrast, patient injected with 80 mL of Isovue 300. FINDINGS: Lung bases are clear. On the pre-IV contrast images, there are no gallstones or renal calcifications. There is no focal mass or organomegaly involving the liver, pancreas, spleen and adrenal glands. Ther e is no pancreatic mass or cyst. Peripancreatic soft tissues are normal without inflammatory change. There is no solid renal mass or hydronephrosis. The caliber of the abdominal aorta is normal no retroperitoneal adenopathy. The bowel loops are normal in caliber and no dilatation or obstruction. No inflammatory changes ident ified in the bowel wall and mesentery. Is no free intraperitoneal air or fluid. The osseous structures are intact. IMPRESSION: No significant abnormality seen.
== END | disposition home or self-care (01) ==
LOC: RADCTMAIN 14:20
PROVIDERS: ATTEND Family Medicine
DX: K85.90 Acute pancreatitis without necrosis or infection, unspecified (principal); R10.9 Unspecified abdominal pain; R79.9 Abnormal finding of blood chemistry, unspecified
CPT/HCPCS: 74170; Q9967

== ENCOUNTER → 2023-10-17 | Outpatient (CLI) | payer MEDICAID ==
[2023-10-17 15:34] LABS: Amylase 81 U/L (23-121); Lipase 42 U/L (14-63)
== END | disposition home or self-care (01) ==
LOC: LABWHC1 10:38
PROVIDERS: ATTEND Family Medicine
DX: K85.90 Acute pancreatitis without necrosis or infection, unspecified (principal)
CPT/HCPCS: 36415; 82150; 83690

== ENCOUNTER → 2024-08-01 | Outpatient (CLI) | payer MEDICAID ==
--- NOTE | 2024-08-06 11:08 | MM ---
Reason for Exam: Screening (asymptomatic). Last mammogram was performed 1 year(s) and 2 month(s) ago. Patient History: Menarche at age 13. First Full-Term at age 26. Postmenopausal. Patient has history of breast feeding. Paternal cousin had breast cancer. Paternal aunt had breast cancer. Risk Values: Sylwia 5 year model risk: 1.0%. NCI Lifetime model risk: 10.2%. Prior Study Comparison: 12/25/2020 Bilateral Screening Mammogram, [facility]. 02/26/2022 Bilateral MG 3D screening mammo w/cad, [facility]. 05/26/2023 Bilateral MG 3D screening mammo w/cad, [facility]. Tissue Density: The breasts are heterogeneously dense, which may obscure small masses. Findings: Analyzed By CAD. Right breast: There is no suspicious group of microcalcifications or new suspicious mass. Left breast: There is no suspicious group of microcalcifications or new suspicious mass. Overall Assessment: Negative, BI-RAD 1 Management: Screening Mammogram of both breasts in [address] [facility] will attempt to contact patient to return for supplemental views and ultrasound if indicated. Patient should continue monthly self-breast exams. A clinical breast exam by your physician is recommended on an annual basis. This exam should not preclude additional follow-up of suspicious palpable abnormalities. Note on Sylwia scores and lifetime risk: 1. A Sylwia score greater than 3% is considered moderate risk. If this is the case, consider specialist referral to assess eligibility for a risk reducing agent. 2. If overall lifetime risk for the development of breast cancer is 20% or higher, the patient may qualify for future screening with alternating mammogram and breast MRI. [facility], , 08/06/2024 11:05 AM. Electronically signed and approved by: Ld Guadalupe DO
== END | disposition home or self-care (01) ==
LOC: RADMAMWWP 07:03
PROVIDERS: ATTEND Family Medicine
DX: Z12.31 Encounter for screening mammogram for malignant neoplasm of breast (principal); R92.333 Mammographic heterogeneous density, bilateral breasts; Z78.0 Asymptomatic menopausal state; Z80.3 Family history of malignant neoplasm of breast
CPT/HCPCS: 77063; 77067